=== PATIENT | male | born 1975 | race Caucasian/White ===

== ENCOUNTER 2017-06-05 20:02 | Emergency (ER) | payer BC ==
[~2017-06-05] VITALS: Ht 170.2 cm; Wt 84.4 kg
[2017-06-05 21:51] LABS: microscopic required? NO
[2017-06-05 22:00] LABS: BASOPHIL % 0.9 % (0-2); PLATELET COUNT 236 x10^3mcL (130-400); RED CELL DISTRIBUTION WIDTH 12.3 % (11.5-14.5)
[2017-06-05 22:07] LABS: urine erythrocyte NEGATIVE (NEGATIVE)
[2017-06-05 22:13] LABS: CALCIUM 8.5 mg/dL (8.5-10.1); CARBON DIOXIDE 27.5 mmol/L (21-32); CHLORIDE SERUM 101 mmol/L (98-107); CREATININE SERUM 0.7 mg/dL (0.7-1.3); GFR1 > 60 mL/min; GLUCOSE SERUM 402 mg/dL (74-106); POTASSIUM SERUM 4.2 mmol/L (3.5-5.1); SODIUM SERUM 131 mmol/L (136-145)
[2017-06-05 22:18] LABS: ALKALINE PHOSPHATASE 121 U/L (46-116); ALT/SGPT 34 U/L (16-63); AST/SGOT 13 U/L (15-37); BILIRUBIN TOTAL 0.29 mg/dL (0.20-1.00); TOTAL PROTEIN, SERUM 6.9 g/dL (6.4-8.2)
[2017-06-05 22:20] LABS: ALBUMIN 3.3 g/dL (3.4-5.0)
[2017-06-05 23:48] VITALS: BP 144/75
== END 2017-06-05 23:49 | disposition home or self-care (01) ==
LOC: ED 20:02
PROVIDERS: Emergency Medicine
DX: E11.65 Type 2 diabetes mellitus with hyperglycemia (principal); Z79.84 Long term (current) use of oral hypoglycemic drugs
CPT/HCPCS: 82962; 83880; J1815; J7030; Q0092

== ENCOUNTER 2017-09-13 07:39 | Emergency (ER) | payer BC ==
[~2017-09-13] VITALS: Ht 165.1 cm; Wt 85.7 kg
[2017-09-13 07:48] VITALS: BP 137/94; Ht 165.1 cm; Wt 85.7 kg
== END 2017-09-13 08:30 | disposition home or self-care (01) ==
LOC: ED 07:39
DX: J02.9 Acute pharyngitis, unspecified (principal); J45.909 Unspecified asthma, uncomplicated; E11.9 Type 2 diabetes mellitus without complications

== ENCOUNTER 2017-09-30 01:18 | Inpatient (IN) | payer BC ==
[2017-09-30] VITALS (8 sets, daily range): BP systolic 112–145; BP diastolic 64–91; Ht 172.7 cm; Wt 88.9 kg
[~2017-09-30] VITALS: Ht 172.7 cm; Wt 88.9 kg
[2017-09-30 02:35] LABS: ALBUMIN 3.6 g/dL (3.4-5.0); ALKALINE PHOSPHATASE 116 U/L (46-116); ALT/SGPT 35 U/L (16-63); AST/SGOT 10 U/L (15-37); BILIRUBIN TOTAL 0.38 mg/dL (0.20-1.00); CALCIUM 9.2 mg/dL (8.5-10.1); CARBON DIOXIDE 22.1 mmol/L (21-32); CHLORIDE SERUM 97 mmol/L (98-107); CREATININE SERUM 0.9 mg/dL (0.7-1.3); GFR1 > 60 mL/min; SODIUM SERUM 132 mmol/L (136-145); TOTAL PROTEIN, SERUM 7.2 g/dL (6.4-8.2)
[2017-09-30 02:38] LABS: GLUCOSE SERUM 477 mg/dL (74-106)
[2017-09-30 02:40] LABS: BASOPHIL % 0.4 % (0-2); PLATELET COUNT 258 x10^3mcL (130-400); RED CELL DISTRIBUTION WIDTH 12.5 % (11.5-14.5)
[2017-09-30] MEDS ORDERED: METFORMIN HCL1000 MG PO (04:13)
[2017-09-30] MEDS ORDERED: CHOLESTEROL PILL (04:14)
[2017-09-30 04:53] LABS: UA SPECIFIC GRAVITY 1.015 (1.005-1.035); microscopic required? YES; urine erythrocyte NEGATIVE (NEGATIVE)
[2017-09-30 05:06] LABS: AMPHETAMINE QUAL UR NONE DETECTED (NEG <=1000)
[2017-09-30 05:58] LABS: MAGNESIUM 1.6 mg/dL (1.8-2.4)
[2017-09-30 06:03] LABS: AMYLASE 150 U/L (25-115); CHOLESTEROL 227 mg/dL (<200); CHOLESTEROL/HDL RATIO 7.3; HDL CHOLESTEROL 31 mg/dL (40-60); LIPASE 1500 IU/L (73-393); TRIGLYCERIDES 442 mg/dL (<150)
[2017-09-30 06:05] LABS: FREE T4 1.24 ng/dL (0.76-1.46); FREE THYROXINE INDEX 2.8 ug/dL (1.4-4.5); T3 TOTAL 0.9 ng/mL; T4(THYROXINE) 7.5 ug/dL (4.7-13.3)
[2017-10-01 06:08] VITALS: BP 132/77
[2017-10-01 07:17] LABS: CALCIUM 8.3 mg/dL (8.5-10.1); CARBON DIOXIDE 24.1 mmol/L (21-32); CHLORIDE SERUM 105 mmol/L (98-107); CREATININE SERUM 0.6 mg/dL (0.7-1.3); GFR1 > 60 mL/min; GLUCOSE SERUM 258 mg/dL (74-106); MAGNESIUM 1.6 mg/dL (1.8-2.4); PHOSPHOROUS 2.9 mg/dL (2.5-4.9); POTASSIUM SERUM 3.8 mmol/L (3.5-5.1); SODIUM SERUM 138 mmol/L (136-145)
[2017-10-01 07:43] LABS: PLATELET COUNT 221 x10^3mcL (130-400); RED CELL DISTRIBUTION WIDTH 12.5 % (11.5-14.5)
[2017-10-01 07:44] LABS: BASOPHIL % 0.3 % (0-2)
[2017-10-01 09:21] VITALS: BP 108/66
[2017-10-01 11:49] VITALS: BP 108/66
[2017-10-01] MEDS ORDERED: PROTONIX20 MG PO (13:36)
== END 2017-10-01 14:25 | disposition home or self-care (01) | DRG 391 ==
LOC: ED 01:18 → DU 04:10
PROVIDERS: Emergency Medicine; Family Medicine
DX: K21.9 Gastro-esophageal reflux disease without esophagitis (principal); K85.90 Acute pancreatitis without necrosis or infection, unspecified; E87.1 Hypo-osmolality and hyponatremia; D68.69 Other thrombophilia; E11.65 Type 2 diabetes mellitus with hyperglycemia; E78.5 Hyperlipidemia, unspecified; F17.210 Nicotine dependence, cigarettes, uncomplicated; Z68.25 Body mass index [BMI] 25.0-25.9, adult; Z79.84 Long term (current) use of oral hypoglycemic drugs; J45.909 Unspecified asthma, uncomplicated; Z83.3 Family history of diabetes mellitus; E83.42 Hypomagnesemia
CPT/HCPCS: 82962; 83880; 84439; 94150; J2270; J2405; J7030; J7620; Q0092

== ENCOUNTER 2018-08-21 12:21 | Inpatient (IN) | payer BC ==
[~2018-08-21] VITALS: Ht 172.7 cm; Wt 85.9 kg
[~2018-08-21 12:21] MED LIST: CHOLESTEROL PILL; METFORMIN HCL1000 MG PO; PROTONIX20 MG PO
[2018-08-21 12:58] LABS: microscopic required? NO
[2018-08-21 13:07] LABS: urine erythrocyte NEGATIVE (NEGATIVE)
[2018-08-21 13:15] LABS: BASOPHIL % 0.5 % (0-2); PLATELET COUNT 253 x10^3mcL (130-400); RED CELL DISTRIBUTION WIDTH 12.6 % (11.5-14.5)
[2018-08-21 13:59] LABS: ALBUMIN 3.7 g/dL (3.4-5.0); ALKALINE PHOSPHATASE 131 U/L (46-116); ALT/SGPT 42 U/L (16-63); AST/SGOT 15 U/L (15-37); BILIRUBIN TOTAL 0.3 mg/dL (0.20-1.00); CALCIUM 9.4 mg/dL (8.5-10.1); CARBON DIOXIDE 22.1 mmol/L (21-32); CHLORIDE SERUM 96 mmol/L (98-107); CREATININE SERUM 1.1 mg/dL (0.7-1.3); GFR1 > 60 mL/min; SODIUM SERUM 131 mmol/L (136-145); TOTAL PROTEIN, SERUM 7.8 g/dL (6.4-8.2)
[2018-08-21 14:01] LABS: GLUCOSE SERUM 568 mg/dL (74-106)
[2018-08-21] MEDS ORDERED: ATORVASTATIN CA10 M1 PO (14:47)
[2018-08-21] MEDS ORDERED: GLIPIZIDE2.5 M1 PO (14:47)
[2018-08-21 14:54] LABS: AMPHETAMINE QUAL UR NONE DETECTED (See below)
[2018-08-21 14:54] LABS: LIPASE 701 IU/L (73-393)
[2018-08-21 14:58] LABS: AMYLASE 140 U/L (25-115); CHOLESTEROL 270 mg/dL (<200); CHOLESTEROL/HDL RATIO 8.4; HDL CHOLESTEROL 32 mg/dL (40-60); TRIGLYCERIDES 426 mg/dL (<150)
[2018-08-21 16:35] VITALS: BP 125/76
[2018-08-21 16:54] LABS: CARBON DIOXIDE 22.2 mmol/L (21-32); CHLORIDE SERUM 103 mmol/L (98-107); CREATININE SERUM 0.6 mg/dL (0.7-1.3); GFR1 > 60 mL/min; GLUCOSE SERUM 273 mg/dL (74-106); POTASSIUM SERUM 3.7 mmol/L (3.5-5.1); SODIUM SERUM 137 mmol/L (136-145)
[2018-08-21 17:33] VITALS: BP 125/76
[2018-08-21 19:30] VITALS: BP 129/85
[2018-08-21 20:55] VITALS: BP 129/75
[2018-08-21 23:09] VITALS: BP 116/53
[2018-08-22 01:12] VITALS: BP 118/75
[2018-08-22 03:00] VITALS: BP 110/55
[2018-08-22 05:00] VITALS: BP 117/81
[2018-08-22 05:28] LABS: BASOPHIL % 0.5 % (0-2); PLATELET COUNT 218 x10^3mcL (130-400); RED CELL DISTRIBUTION WIDTH 12.5 % (11.5-14.5)
[2018-08-22 05:45] LABS: CALCIUM 7.9 mg/dL (8.5-10.1); CHLORIDE SERUM 107 mmol/L (98-107); CREATININE SERUM 0.6 mg/dL (0.7-1.3); GFR1 > 60 mL/min; GLUCOSE SERUM 130 mg/dL (74-106); MAGNESIUM 1.7 mg/dL (1.8-2.4); PHOSPHOROUS 3.8 mg/dL (2.5-4.9); POTASSIUM SERUM 3.8 mmol/L (3.5-5.1); SODIUM SERUM 141 mmol/L (136-145)
[2018-08-22 07:40] VITALS: BP 117/81
[2018-08-22] MEDS ORDERED: GLUCOTROL10 MG PO (10:28)
[2018-08-22 10:35] VITALS: BP 113/71
== END 2018-08-22 13:43 | disposition home or self-care (01) | DRG 438 ==
LOC: ED 12:21 → MU 14:21 → IC 14:21
PROVIDERS: Emergency Medicine; General Practice
DX: K85.90 Acute pancreatitis without necrosis or infection, unspecified (principal); E11.10 Type 2 diabetes mellitus with ketoacidosis without coma; E87.3 Alkalosis; J45.909 Unspecified asthma, uncomplicated; E66.9 Obesity, unspecified; E86.0 Dehydration; E11.65 Type 2 diabetes mellitus with hyperglycemia; F17.210 Nicotine dependence, cigarettes, uncomplicated; E02 Subclinical iodine-deficiency hypothyroidism; E78.5 Hyperlipidemia, unspecified; Z91.19 Patient's noncompliance with other medical treatment and regimen; Z83.3 Family history of diabetes mellitus
CPT/HCPCS: 82962; 83880; 94150; J0696; J1815; J2405; J7030; Q0092